=== PATIENT | female | born 1955 | race Caucasian/White ===

== ENCOUNTER 2025-04-18 10:48 | Outpatient (AMB) | payer MEDICARE, SELFPAY ==
--- NOTE | 2025-04-18 10:54 | MHC.PC.OV ---
Vital Signs 04/18/25 10:56 Height 5 ft 1.57 in Weight 126 lb 6 oz BMI 23.4 BP 134/76 Blood Pressure Location Lt brachial Position Sitting Respiration 14 Pulse 107 H Pulse Source Pulse Oximeter Temp 98.3 F Temp Source Oral Pulse Oximetry (%) 97 Oxygen Delivery Method Room Air Intake Visit Reasons: [facility] Intake Note: New patient visit Developer Advisor Required: No Allergies animal dander Allergy (Unknown, Verified 04/18/25 10:51) congestion apple Allergy (Unknown, Verified 04/18/25 10:51) throat swelling sulfamethoxazole (From Bactrim) Allergy (Unknown, Verified 04/18/25 10:51) upset stomach trimethoprim (From Bactrim) Allergy (Unknown, Verified 04/18/25 10:51) upset stomach adhesive bandage Allergy (Unknown, Uncoded 04/18/25 10:51) Rash fruit Allergy (Unknown, Uncoded 04/18/25 10:51) mouth tingles Tobacco use date assessed: 04/18/25 Fall risk assessment: No Falls in past year Last assessed Fall Risk: 04/18/25 Dental Screening Dental Screen Date: 04/18/25 Did you have a dental visit in the last 12 months?: No Did you have a dental problem in the last 6 months where you did not have access to dental care?: No Was dental information given to patient?: Patient has dentist HPI HPI Comments History of Present Illness Details 69 year old female with a past medical history of breast cancer, [facility] Heme/Onc: 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 Left lumpectoy 09/2019, Right lumpectomy 09/2019. Bilateral breast radiation february 2020. Just completed 5 years of tamoxifen. Her insurance stopped covering mammo at [facility]. Now going to [facility] last mammo 11/2024 She is caring for her partner who has end stage cancer. She is home with him almost 09/02. She is under a lot of stress. She has had increasing back pain from lifting/caring for him. 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 No longer following Cologuard was due 2023 ROS see HPI PHYSICAL EXAM: GENERAL: Alert and oriented x 3. NAD EYES: EOMI. Anicteric. HENT: Moist mucous membranes. No scleral icterus. No cervical lymphadenopathy. LUNGS: Clear to auscultation bilaterally. CARDIOVASCULAR: Regular rate and rhythm. No murmur. No JVD. ABDOMEN: Soft, non-tender +bs EXTREMITIES: No edema. Non-tender. SKIN: No rashes or lesions. Warm. NEUROLOGIC: No focal neurological deficits. CN II-XII grossly intact PSYCHIATRIC: Cooperative. Appropriate mood and affect [facility] Medical History History of nephrolithotomy with removal of calculi Surgical History H/O subtotal mastectomy of right breast H/O lymph node excision Social History Housing: House Patient Tobacco Use Status: Never used Tobacco e-Cigarette/Vaping Use: Never Used Second Hand Smoke Exposure: Yes (past) service: No Current occupational status: unemployed Cognitive needs: No Hearing needs: No Vision needs: No Questionnaire PHQ-9 Over the last 2 weeks, how often have you been bothered by any of the following problems? 1. Little interest or pleasure in doing things: not at all 2. Feeling down, depressed, or hopeless: not at all 3. Trouble falling or staying asleep, or sleeping too much: not at all 4. Feeling tired or having little energy: several days 5. Poor appetite or overeating: not at all 6. Feeling bad about yourself - or that you are a failure or have let yourself or your family down: not at all 7. Trouble concentrating on things, such as reading the newspaper or watching television: not at all 8. Moving or speaking so slowly that other people could have noticed. Or the opposite - being so fidgety or restless that you have been moving around a lot more than usual: not at all 9. Thoughts that you would be better off or of hurting yourself in some way: not at all Total score: 1 Depression Screening Interpretation: Negative Depression Screening Done: Yes 73401 - PHQ-9 Billing: Yes Source: Developed by Drs. Stephen Rascon, Rosemarie CabralFady and colleagues, with an educational sarabjit from [employer]. Thrive Questionnaire I am a: Parent/Caregiver What is your living situation today?: I choose not to answer this question Within the past 12 months, did the food you bought not last and you didn't have the money to get more?: I choose not to answer this question Within the past 12 months, did you worry whether your food would run out before you got money to buy more?: I choose not to answer this question Do you have trouble paying for medicines?: I choose not to answer this question Do you have trouble getting transportation to medical appointments?: No Do you have trouble paying your heating and electricity bill?: No Do you have trouble taking care of your child, family member or friend?: No Do you have trouble with day-to-day activities such as bathing, preparing meals, shopping, managing finances, etc.?: No Are you currently unemployed and looking for a job?: I choose not to answer this question Are you interested in more education?: I choose not to answer this question Please select the resources that you would like help with: None Currently or been in a relationship where the following occur: No concerns reported THRIVE Score: 0 AUDIT C Alcohol Use Questionnaire (AUDIT-C) 1. How often do you have a drink containing alcohol?: Monthly or less 2. How many drinks containing alcohol do you have on a typical day when you are drinking?: 1 or 2 3. How often do you have six or more drinks on one occasion?: Never Total Score: 1 MATT-7 AMB Questionnaire MATT-7 Feeling nervous, anxious, or on edge: 0 = Not at all Not being able to stop or control worryin = Not at all Worrying too much about different things: 0 = Not at all Source: Developed by Drs. Stephen Rascon, Fady Hernández and colleagues, with an educational sarabjit from [employer]. Physical exam (Primary Care) Vital Signs: Last Vital Signs Temp 98.3 F 04/18/25 10:56 Pulse 107 H 04/18/25 10:56 Resp 14 04/18/25 10:56 BP 134/76 04/18/25 10:56 Pulse Ox 97 04/18/25 10:56 Oxygen Delivery Method Room Air 04/18/25 10:56 BMI result Body Mass Index 23.4 Tobacco/Smoking Status: Tobacco use Status Tobacco use date assessed 04/18/25 04/18/25 10:59 Patient Tobacco Use Status Never used Tobacco 04/18/25 10:59 e-Cigarette/Vaping Use Never Used 04/18/25 10:59 PHQ-9: PHQ-9 Score PHQ-9: Total score 1 04/18/25 10:59 Depression Screening Interpretation: Negative Currently or been in a relationship where the following occur: No concerns reported Coding Level of Care Code New Pt Level 4 (12436) Complex EM visit Add On G2211 Diagnoses Anxiety F41.9 History of breast cancer Z85.3 Night sweats R61 Chronic low back pain, unspecified back pain laterality, unspecified whether sciatica present M54.50; G89.29 Chronicity: chronic Back pain laterality: unspecified Sciatica presence: unspecified whether sciatica present Additional Codes PHQ-9 - 23350 - PHQ-9 Billing: Yes ([id number]) Assessment & Plan Assessment & Plan (1) Anxiety: Code(s): F41.9 - Anxiety disorder, unspecified Category: Medical (2) History of breast cancer: Code(s): Z85.3 - Personal history of malignant neoplasm of breast Category: Medical (3) Night sweats: Code(s): R61 - Generalized hyperhidrosis Category: Medical (4) Low back pain: Code(s): M54.50 - Low back pain, unspecified Category: Medical Qualifiers: Chronicity: chronic Back pain laterality: unspecified Sciatica presence: unspecified whether sciatica present Qualified Code(s): M54.50 - Low back pain, unspecified; G89.29 - Other chronic pain Plan 69 year old to reestablish care Past medical, surgical, social reviewed Anxiety-declines medications at present Back pain-tolerable. Decline w/up etc at present History of breast cancer-continue annual exam, mammogram Labs ordered Orders: Orders Comprehensive Met. Panel Today F41.9 - Anxiety disorder, unspecified, R61 - Generalized hyperhidrosis, Z13.220 - Encounter for screening for lipoid disorders, Z13.228 - Encounter for screening for other metabolic disorders, Z85.3 - Personal history of malignant neoplasm of breast Lipid Panel Today F41.9 - Anxiety disorder, unspecified, R61 - Generalized hyperhidrosis, Z13.220 - Encounter for screening for lipoid disorders, Z13.228 - Encounter for screening for other metabolic disorders, Z85.3 - Personal history of malignant neoplasm of breast TSH reflex Free T4 Today F41.9 - Anxiety disorder, unspecified, R61 - Generalized hyperhidrosis, Z13.220 - Encounter for screening for lipoid disorders, Z13.228 - Encounter for screening for other metabolic disorders, Z85.3 - Personal history of malignant neoplasm of breast Complete Blood Count Auto Diff Today F41.9 - Anxiety disorder, unspecified, R61 - Generalized hyperhidrosis, Z13.220 - Encounter for screening for lipoid disorders, Z13.228 - Encounter for screening for other metabolic disorders, Z85.3 - Personal history of malignant neoplasm of breast Hemoglobin A1c Today F41.9 - Anxiety disorder, unspecified, R61 - Generalized hyperhidrosis, Z13.220 - Encounter for screening for lipoid disorders, Z13.228 - Encounter for screening for other metabolic disorders, Z85.3 - Personal history of malignant neoplasm of breast MM tomosynthesis diagnostic BI 12/01/25 Z85.3 - Personal history of malignant neoplasm of breast Referrals Cologuard Test Z12.11 - Encounter for screening for malignant neoplasm of colon, Z12.12 - Encounter for screening for malignant neoplasm of rectum
[2025-04-18 10:56] VITALS: BP 134/76; PULSE 107; RESP 14; TEMP 36.8; O2SAT 97; BMI 23.4
--- OUTSIDE RECORDS SUMMARY | 2025-04-18 12:06 | XMS_ITS ---
Author Name [facility] Organization Unknown Care Team Organization Name Specialty Phone Email Start Date End Da te [facility] Termed, PROVIDER Primary Care 05/27/202202/17
--- OUTSIDE RECORDS SUMMARY | 2025-04-18 12:07 | XMS_ITS | Clinical Summary ---
Author Organization [facility] Address [address] [facility] [address] [place] [id number] Phone Care Team Providers Care Superintendent [employer]munition Storage Name Role Phone Marisol Robert MD Primary Care Provider + Self-Referred, Patient Unavailable Unavailab Kady Barton MD Unavailable + [phone] Connor Bravo MD, PhD Unavailable + [phone] Amy Pappas MD Unavailable Allergies Active Allergy Reactions Criticality Noted Date Comments Sulfamethoxazole-Trimethoprim 2018 Raw Fruit Angioedema 07/05/2019 Raw Vegetable Angioedema 07/05/2019 Adhesive 07/05/2019 Medications LORAZEPAM ORAL Take by mouth. Active cholecalciferol (VITAMIN D3) 5,000 unit capsule Take 1,000 Units by mouth daily. Active Active Problems Problem Noted Date Diagnosed Date Neoplasm of right breast, pr imary tumor staging category Tis: ductal carcinoma in situ (DCIS) 07/06/2019 Carcinoma of central portion of left breast in female, estrogen receptor positive 07/06/2019 Family History Medical History Relation Comments Prostate cancer Father Abnormal EKG Sister Breast cancer Neg Hx Ovarian cancer Neg Hx Relation Status Comments Father Sister Social History Tobacco Use Types Packs/Day Years Used Date Smoking Tobacco: Never Smokeless Tobacco: Never Alcohol Use Standard Drinks/Week Comments Yes 0 (1 standard drink = 0.6 oz pure alcohol) 1-4 drinks per week; Stopped drinking alcohol regularly at age 62 Education Answer Date Recorded Are you interested in more education? Not on stephan e 11/14/2022 Are you concerned about learning? Not on file 11/14/2022 No 11/14/2022 No 11/14/2022 Digital Access Answer Date Recorded No 12/13/2022 No 12/13/2022 No 12/13/2022 Reliable internet access at home? Not on file 12/13/2022 Device with a working camera? 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 file Not on file Not on file Last Filed Vital Signs Vital Sign Reading Time Taken Comments Blood Pressure 108/76 08/16/2019 1:42 PM EST Pulse 118 08/16/2019 1:42 PM EST Temperature 36.9 C (98.4 F) 07/06/2019 8:25 AM EST Respiratory Rate 16 07/06/2019 8:25 AM EST Oxygen Saturation 99% 08/16/2019 1:42 PM EST Inhaled Oxygen Concentration - - Weight 60.8 kg (134 lb) 08/16/2019 1:42 PM EST Height 160 cm (5' 3 ) 08/16/2019 1:42 PM EST Body Mass Index 23.74 08/16/2019 1:42 PM EST Plan of Treatment Health Maintenance Due Date Last Done Comments Adult Td,Tdap Booster 1955 LIPID PANEL 1956 DEPRESSION SCREENING 1968 HEPATITIS C SCREENING 1974 PNEUMOCOCCAL VACCINES (50+ years) (1 of 2 - PCV) 12/09/1975 ZOSTER VACCINES (1 of 2) 12/09/1975 COLOGUARD 2001 COLONOSCOPY 2001 COLORECTAL CANCER SCREENING 2001 FIT TEST 2001 FOBT 2001 SIGMOIDOSCOPY 2001 VIRTUAL COLONOSCOPY 2001 MAMMOGRAM 06/27/2021 06/27/2019, 02/17, 02/15/2019, Additional history exists OSTEOPOROSIS SCREENING INITIAL (ONE-TIME) 2021 INFLUENZA VACCINE (#1) 2025 COVID-19 VACCINE ( season) 2025 12/04/2020, 11/13/2020 RSV VACCINE (1 - 1-dose 75+ series) 12/09/2031 SMOKING STATUS SCREENING (Once After 26 Yrs) Completed 08/16/2019 HEPATITIS A VACCINES Aged Out No long er eligible based on patient's age to complete this topic HIB VACCINES Aged Out No longer eligi ble based on patient's age to complete this topic MENINGOCOCCAL VACCINES (ACWY) Aged Out No longer eligible based on patient's age to complete this topic MENINGOCOCCAL VACCINES (B) Aged Out N o longer eligible based on patient's age to complete this topic Medical Devices Not on file Procedures Procedure Name Priority Date/Time Associated Diagnosis Comments BI MAMMOGRAM OUTSIDE (NO INTERPRETATION) Routine 06/27/2019 12:00 AM EST from Last 3 Months or Most Recently Relevant to Health Maintenance Results * Mammogram Outside (No Interpretation) (06/27/2019 12:00 AM EST) Other Narrative NEERAJ_BWH - 07/06/2019 8:36 AM EST This study is for PACS storage only and not for interpretation. us Kady Mendoza MD IMG OUTSIDE IMAGING W/ OUT INTERPRETATION Final Result PERCIPIO_BWH from Last 3 Months or Most Recently Relevant to Health Maintenance Insurance [place] [address] [facility] [place] [facility] [place] [facility] [facility] [place] [facility] [employer] [place] [address] [place] [address] [facility] [address] [place] [address] [facility] [place] [place] [address] [place] [facility] Care Teams Superintendent Ammunition Storage Relationship Specialty Start Date End Date Marisol Robert MD [address] [place] [id number] PCP - General Pediatrics 06/28/19 Self-Referred, Patient 06/28/19 Kady Mendoza MD [address] [place] [id number] [email or web address] Surgical Oncology 07/06/19 Connor Bravo MD, PhD [address] [place] [id number] [email or web address] Medical Oncology 07/06/19 Amy Pappas MD [address] [place] [id number] General Surgery 07/06/19 Additional Source Comments The information contained in this document represents components of the legal health record. It is not the complete legal health record.[facility]
--- OUTSIDE RECORDS SUMMARY | 2025-04-18 12:08 | XMS_ITS | Clinical Summary ---
Author Organization [facility] Address [address] [place] [address] Phone Care Team Providers Care Behavior Analyst Name Role Phone Zaina Umaña MD Primary Care Provider [phone] Surgical History Surgery Date Site/Laterality Comments OTHER SURGICAL HISTORY PROCEDURE: NM MYOMECTOMY 1-4 MYOMAS W/250 GM/< ABDOMINAL APPR; COMMENT: November 2010 BREAST LUMPECTOMY Bilateral Medical History Medical History Date Comments Asthma DX:Asthma Depression DX:Depression Bowel trouble DX:Bowel trouble Seasonal allergies 06/20/2011 DX:Seasonal a llergies Vitiligo 09/16/2011 DX:Vitiligo Osteoporosis 11/13/2011 DX:Osteoporosis Osteoporosis DX:Osteoporosis Breast cancer ([facility] V24, [facility] V28) BILATERAL Family History Medical History Relation Name Comments Heart attack Father Other: pneumonia Father Prostate cancer Father Other: joint problems Mother Relation Name Status Comments Brother 1 Alive Donato; heart issu es Brother 2 Alive Father (Age 50) CHF; [place]; p rostate [place] Mother Alive GERD; anxiety; jt problmes Sister 1 Alive healthy Sister 2 (Age 29) suicide Social History Tobacco Use Types Packs/Day Years Used Date Smoking Tobacco: Never Smokeless Tobacco: Never Alcohol Use Standard Drinks/Week Comments Yes 0 (1 standard drink = 0.6 oz pur e alcohol) Comments No Sex and Gender Information Value Date Recorded Sex Assigned at Not on file Legal Sex Female 6:27 AM EST Gender Identity Not on file Sexual Orientation Not on file Obstetrics History Last Filed Vital Signs Vital Sign Reading Time Taken Comments Blood Pressure - - Pulse - - Temperature - - Respiratory Rate - - Oxygen Saturation - - Inhaled Oxygen Concentration - - Weight 59.4 kg (131 lb) 11/30/2024 9:56 AM EDT Height 162.6 cm (5' 4 ) 11/30/2024 9:56 AM EDT Body Mass Index 22.49 11/30/2024 9:56 AM EDT Plan of Treatment Health Maintenance Due Date Last Done Comments DTaP,Tdap,and Td Vaccines (1 - Tdap) 12/09/1975 Pneumococcal Vaccine: 50+ Years (1 of 2 - PCV) 12/09/1975 Zoster Vaccines (1 of 2) 12/09/1975 Colorectal Cancer Screening: Stool Based Tests (FOBT/FIT) 06/22/2022 Falls Risk Assessment 06/22/2022 Hepatitis C Screening 06/22/2022 Medicare Annual Wellness Visit 06/22/2022 Osteoporosis Screening (Bone Density Screening) 06/22/2022 Social Influencers of Health Screening 06/22/2022 Depression Screening 07/20/2024 COVID-19 Vaccine ( season) 2025 08/10/2023, 12/27/2021, 12/04/2020, Additional history exists Influenza Vaccine (#1) 2025 05/02/2024, 2022 Breast Cancer Screening 11/30/2026 11/30/2024, 11/30 RSV Immunization Adult Patients (1 - 1-dose 75+ series) 12/09/2031 HIB Vaccines Aged Out No longer eligi ble based on patient's age to complete this topic HPV Vaccines Aged Out No longer eligi ble based on patient's age to complete this topic Hepatitis A Vaccines Aged Out No long er eligible based on patient's age to complete this topic Hepatitis B Vaccines Aged Out No long er eligible based on patient's age to complete this topic IPV Vaccines Aged Out No longer eligi ble based on patient's age to complete this topic MMR Vaccines Aged Out No longer eligi ble based on patient's age to complete this topic Meningococcal ACWY Vaccine Aged Out N o longer eligible based on patient's age to complete this topic Meningococcal B Vaccine Aged Out No l onger eligible based on patient's age to complete this topic RSV Immunization Patients Under 20 months Aged Out No longer eligible based on patient's age to complete this topic Varicella Vaccines Aged Out No longer eligible based on patient's age to complete this topic Procedures Procedure Name Priority Date/Time Associated Diagnosis Comments MG MAMMO DIGITAL SCREENING W FLAQUITO BILAT Routine 11/30/2024 10:09 AM EDT Encounter for screening mammogram for breast cancer from Last 3 Months or Most Recently Relevant to Health Maintenance Results * MG Mammo Digital Screening w Flaquito bilat (11/30/2024 10:09 AM EDT) Anatomical Region Laterality Modality Breast Bilateral Mammography 12/01/2024 4:22 PM EDT Impressions 12/01/2024 4:32 PM EDT No mammographic evidence of new or recurrent malignancy. No suspicious interval change. A negative mammogram in the presence of a clinically suspicious palpable abnormality does not preclude the possibility of malignancy or alter the indications for biopsy. ASSESSMENT: BI-RADS 2: BENIGN RECOMMENDATION(S): 1: Routine screening mammogram BILATERAL in 1 year. [facility] [address], [address] -------- FINAL REPORT -------- Dictated By: Cuauhtemoc Cheung Dictated Date: 12/01/2024 16:22 ET Assigned Physician: Cuauhtemoc Cheung Reviewed and Electronically Signed By: Cuauhtemoc Cheung Signed Date: 12/01/2024 16:32 ET Workstation ID: [id number] Transcribed By: Self Edit Transcribed Date: 12/01/2024 16:22 ET Narrative 12/01/2024 4:32 PM EDT EXAM: SCREENING MAMMOGRAPHY, BILATERAL HISTORY: SCREENING. Personal history of bilateral breast cancer postlumpectomy COMPARISON: 10/15/23, 10/13/22, 10/09/21, 09/24/20 TECHNIQUE: Synthesized CC and MLO projections of each breast. Tomosynthesis of each breast in the CC and MLO projections. ADDITIONAL IMAGING: Craniocaudal view of the right breast exaggerated toward the axilla using Tomosynthesis. Computer-aided detection was employed with the Splice AI 3-D. TISSUE DENSITY: The breasts are heterogeneously dense, which may obscure small masses. (BI-RADS category C) FINDINGS: RIGHT BREAST: There is architectural distortion and there are surgical clips present. No additional suspicious right breast findings LEFT BREAST: There is architectural distortion. There are surgical clips present. There is a biopsy site marker present. No additional suspicious left breast findings Procedure Note Cuauhtemoc Cheung MD - 12/01/2024 EXAM: SCREENING MAMMOGRAPHY, BILATERAL HISTORY: SCREENING. Personal history of bilateral breast cancerpostlumpectomy COMPARISON: 10/15/23, 10/13/22, 10/09/21, 09/24/20 TECHNIQUE: Synthesized CC and MLO projections of each breast.Tomosynthesis of each breast in the CC and MLO projections. ADDITIONAL IMAGING: Craniocaudal view of the right breast exaggeratedtoward the axilla using Tomosynthesis. Computer-aided detection was employed with the [employer] 3-D. TISSUE DENSITY: The breasts are heterogeneously dense, which may obscuresmall masses. (BI-RADS category C) FINDINGS: RIGHT BREAST: There is architectural distortion and there are surgical clips present.No additional suspicious right breast findings LEFT BREAST: There is architectural distortion. There are surgical clips present.There is a biopsy site marker present. No additional suspicious leftbreast findings IMPRESSION: No mammographic evidence of new or recurrent malignancy. No suspicious interval change. A negative mammogram in the presence of a clinically suspicious palpableabnormality does not preclude the possibility of malignancy or alter theindications for biopsy. ASSESSMENT: BI-RADS 2: BENIGN RECOMMENDATION(S): 1: Routine screening mammogram BILATERAL in 1 year. [facility] [address], [address] -------- FINAL REPORT -------- Dictated By: Cuauhtemoc Cheung Dictated Date: 12/01/2024 16:22 ET Assigned Physician: Cuauhtemoc Cheung Reviewed and Electronically Signed By: Cuauhtemoc Cheung Signed Date: 12/01/2024 16:32 ET Workstation ID: [id number] Transcribed By: Self Edit Transcribed Date: 12/01/2024 16:22 ET us Self Referral Sppl IMG BI PROCEDURES Final Resul t from Last 3 Months or Most Recently Relevant to Health Maintenance Insurance [employer] MEDICARE Care Teams Behavior Analyst Relationship Specialty Start Date End Date Zaina Umaña MD [address] [place] [address] [address] [place] [address] PCP - General Internal Medicine 11/30/24
== END 2025-04-18 11:25 | disposition home or self-care (01) ==
LOC: HO.HMCFM 10:49
PROVIDERS: PCP Internal Medicine; Visit Provider Internal Medicine
DX: F41.9 Anxiety disorder, unspecified (principal); Z85.3 Personal history of malignant neoplasm of breast; R61 Generalized hyperhidrosis; M54.50 Low back pain, unspecified; G89.29 Other chronic pain

== ENCOUNTER 2025-04-18 10:48 | Outpatient (REF) | payer MEDICARE, SELFPAY ==
[2025-04-18 14:58] LABS: MANUAL DIFF FLAG NO
[2025-04-18 15:08] LABS: Hematocrit 40.5 % (37.0-47.0); Hemoglobin 13.1 g/dl (12.0-16.0); Imm Gran Abs Auto 0.01 X10*3/uL (0.00-0.03); Imm Gran Pct Auto 0.2 % (0.0-0.4); Lymphocytes Absolute Auto 1.2 X10*3/uL (1.2-4.9); Mean Corpuscular HGB Conc 32.3 g/dl (31.0-35.0); Mean Corpuscular Hemoglobin 28.4 pg (27.0-33.0); Mean Corpuscular Volume 87.9 fL (80.0-98.0); NRBC Abs Auto 0.000 X10*3/uL (0.0-0.012); NRBC Pct Auto 0.0 /100WBC (0.0-0.2); Platelet Count 201 X10*3/uL (160-400); Red Blood Count 4.61 X10*6/uL (4.20-5.50); White Blood Count 4.8 X10*3/uL (4.8-10.8)
[2025-04-18 15:16] LABS: Hemoglobin A1C 136.9614 umol/L
[2025-04-18 16:15] LABS: Alanine Aminotransferase 21 U/L (0-31); Albumin Level 4.6 g/dL (3.5-5.0); Alkaline Phosphatase 74 U/L (39-117); Anion Gap 10 (12-20); Aspartate Amino Transferase 38 U/L (5-31); Blood Urea Nitrogen 21 mg/dL (9-16); Calcium 9.4 mg/dL (8.4-10.2); Carbon Dioxide 32 mmol/L (22-29); Chloride 106 mmol/L (96-108); Cholesterol 187 mg/dL (<200); Estimated Glomerular Filt Rate > 60; HDL Cholesterol 65 mg/dL (>40); Potassium 3.9 mmol/L (3.3-5.1); Sodium 144 mmol/L (135-145); Total Protein 6.9 g/dL (6.5-8.0); Triglycerides 99 mg/dL (<150)
== END 2025-04-18 10:49 | disposition home or self-care (01) ==
LOC: HO.LNP 10:48
PROVIDERS: PCP Internal Medicine; Visit Provider Internal Medicine
DX: Z13.228 Encounter for screening for other metabolic disorders (principal); Z13.220 Encounter for screening for lipoid disorders; R61 Generalized hyperhidrosis; F41.9 Anxiety disorder, unspecified; M54.50 Low back pain, unspecified; Z85.3 Personal history of malignant neoplasm of breast
CPT/HCPCS: 80053; 80061; 83036; 84443; 85025; 96127; 99202

== ENCOUNTER 2025-04-18 14:40 | Outpatient (REF) | payer MEDICARE, SELFPAY | END 2025-04-18 14:41 | disposition home or self-care (01) | LOC: HO.LNP 14:40 | PROVIDERS: Visit Provider Internal Medicine | DX: Z13.89 Encounter for screening for other disorder (principal) ==